=== PATIENT | male | born 1945 | race Caucasian/White ===

== ENCOUNTER → 2020-11-09 | Outpatient (CLI) | payer MEDICARE ==
[~2020-11-09] MED LIST: ACTEMRA IV; AMITRIPTYLINE H75 MG PO; AMLODIPINE BESY10 MG PO; AMLODIPINE BESYL5 MG PO; ARICEPT5 MG PO; ASPIRIN EC81 MG PO; AZULFIDINE500 MG PO; BETAPACE80 MG PO; CATAPRES 0.1MG0.1 MG PO; CELEBREX200 MG PO; CIPRO500 MG PO; CYMBALTA30 MG PO; DILTIAZEM ER240 M1 PO; ELIQUIS5 MG PO; ENDOCET 10-3251 EACH PO; FERROUS SULFAT325 MG PO; FINASTERIDE5 MG PO; FLAGYL500 MG PO; FLOMAX 0.4 MG0.4 MG PO; FOLIC ACID 1 MG1 MG PO; HYDROCHLOROTHIA25 MG PO; HYDROCODON-ACE1 EAC4 PO; ISOSORBIDE MONO60 MG PO; LEVAQUIN500 MG PO; LISINOPRIL10 MG PO; LOVASTATIN10 MG PO; MELOXICAM15 MG PO; METHOTREXATE T2.5 MG PO; MULTAQ 400 MG400 MG PO; NEURONTIN 300300 MG PO; NITROSTAT0.4 MG SL; NORVASC 5 MG TAB5 MG PO; PLAQUENIL 200200 MG PO; PREDNISONE 10 M10 MG PO; PROTONIX40 MG PO; REMICADE I100 MG/VIA INJ; SULFASALAZINE500 MG PO; TOPROL XL25 MG PO; TYLENOL 500 MG500 MG PO; TYLENOL W/CODEIN1 E1 PO; VALACYCLOVIR500 MG PO; VIGAMOX3 ML OP; VITAMIN D3125 MCG PO
== END ==
LOC: HEART 5 10-05 08:45 → EXRD 07:36 → HEART 5 08:30
DX: I20.8 Other forms of angina pectoris (principal); R09.89 Other specified symptoms and signs involving the circulatory and respiratory systems
CPT/HCPCS: 78452; 93880; A9502; J2785

== ENCOUNTER → 2020-11-17 | Outpatient (CLI) | payer MEDICARE | LOC: CT 14:43 | DX: I65.29 Occlusion and stenosis of unspecified carotid artery (principal); N18.9 Chronic kidney disease, unspecified | CPT/HCPCS: 36415; 82565; 84520 ==

== ENCOUNTER → 2020-12-02 | Outpatient (CLI) | payer MEDICARE | LOC: CT 15:04 | DX: I65.23 Occlusion and stenosis of bilateral carotid arteries (principal); M47.812 Spondylosis without myelopathy or radiculopathy, cervical region; M48.02 Spinal stenosis, cervical region | CPT/HCPCS: 70498; Q9967 ==

== ENCOUNTER 2021-01-25 11:04 | Inpatient (IN) | payer MEDICARE ==
[~2021-01-25] VITALS: Ht 185.4 cm; Wt 90.7 kg
[~2021-01-25 11:04] MED LIST changes: -ARICEPT5 MG PO; -CATAPRES 0.1MG0.1 MG PO; -CIPRO500 MG PO; -FLAGYL500 MG PO; -PLAQUENIL 200200 MG PO; -SULFASALAZINE500 MG PO; -VALACYCLOVIR500 MG PO; -VIGAMOX3 ML OP; -VITAMIN D3125 MCG PO
[2021-01-25] MEDS ORDERED: PLAQUENIL 200200 MG PO (11:57)
[2021-01-25] MEDS ORDERED: VITAMIN D3125 MCG PO (12:03)
[2021-01-25 12:06] LABS: HEMOGLOBIN 10.3 gm/dl (14.0-17.5); RED BLOOD COUNT 3.19 M/UL (4.20-5.50); WHITE BLOOD COUNT 13.1 K/UL (4.5-11.0)
[2021-01-25] MEDS ORDERED: FOLIC ACID 1 MG1 MG PO (17:55)
[2021-01-25] MEDS ORDERED: ARICEPT5 MG PO (17:55)
[2021-01-25] MEDS ORDERED: SULFASALAZINE500 MG PO (17:56)
[2021-01-25] MEDS ORDERED: VALACYCLOVIR500 MG PO (17:57)
[2021-01-25] MEDS ORDERED: VIGAMOX3 ML OP (20:33)
[2021-01-25] MEDS ORDERED: CATAPRES 0.1MG0.1 MG PO (22:40)
[2021-01-26 04:59] LABS: HEMOGLOBIN 8.8 gm/dl (14.0-17.5)
[2021-01-26 05:07] LABS: RED BLOOD COUNT 2.72 M/UL (4.20-5.50); WHITE BLOOD COUNT 6.9 K/UL (4.5-11.0)
[2021-01-27 03:10] LABS: RED BLOOD COUNT 2.71 M/UL (4.20-5.50); WHITE BLOOD COUNT 7.8 K/UL (4.5-11.0)
[2021-01-29] MEDS ORDERED: CIPRO500 MG PO (08:37)
[2021-01-29] MEDS ORDERED: FLAGYL500 MG PO (08:37)
== END 2021-01-29 12:45 | disposition home or self-care (01) | DRG 871 ==
LOC: ER1 11:04 → CDU 16:48 → CCU 16:48 → PROG CARE 01-26 22:17 → MED SURG 4 01-28 14:56
PROVIDERS: Emergency Medicine; Internal Medicine; ADMIT Internal Medicine
PROC: 3E033XZ Introduction of Vasopressor into Peripheral Vein, Percutaneous Approach (ICD-10-PCS; principal; 2021-01-25)
DX: A41.9 Sepsis, unspecified organism (principal); R65.21 Severe sepsis with septic shock; N39.0 Urinary tract infection, site not specified; D84.9 Immunodeficiency, unspecified; N17.9 Acute kidney failure, unspecified; I45.2 Bifascicular block; A09 Infectious gastroenteritis and colitis, unspecified; Z20.822 Contact with and (suspected) exposure to COVID-19; E86.1 Hypovolemia; F32.9 Major depressive disorder, single episode, unspecified; E78.00 Pure hypercholesterolemia, unspecified; G89.29 Other chronic pain; I73.9 Peripheral vascular disease, unspecified; N20.0 Calculus of kidney; M06.9 Rheumatoid arthritis, unspecified; N18.30 Chronic kidney disease, stage 3 unspecified; N40.0 Benign prostatic hyperplasia without lower urinary tract symptoms; I48.0 Paroxysmal atrial fibrillation; H54.62 Unqualified visual loss, left eye, normal vision right eye; I12.9 Hypertensive chronic kidney disease with stage 1 through stage 4 chronic kidney disease, or unspecified chronic kidney disease; Z79.01 Long term (current) use of anticoagulants; Z95.0 Presence of cardiac pacemaker; Z99.3 Dependence on wheelchair; Z98.62 Peripheral vascular angioplasty status; Z87.891 Personal history of nicotine dependence; Z88.6 Allergy status to analgesic agent; Z82.49 Family history of ischemic heart disease and other diseases of the circulatory system; Z82.3 Family history of stroke; Z98.890 Other specified postprocedural states; Z91.041 Radiographic dye allergy status
CPT/HCPCS: 36415; 71045; 71250; 80048; 80053; 81001; 82550; 82553; 82962; 83605; 83735; 83874; 84484; 85025; 85027; 85610; 86850; 86900; 86901; 87040; 87086; 93005; 96365; 99285; J1200; J2543; J7030; Q9965; U0002

== ENCOUNTER → 2021-07-06 | Outpatient (CLI) | payer MEDICARE ==
[~2021-07-06] MED LIST changes: +ARICEPT5 MG PO; +AZULFIDINE 500500 MG PO; +CATAPRES 0.1MG0.1 MG PO; +CIPRO500 MG PO; +DONEPEZIL HCL5 MG PO; +FLAGYL500 MG PO; +PLAQUENIL 200200 MG PO; +SULFASALAZINE500 MG PO; +VALACYCLOVIR500 MG PO; +VIGAMOX3 ML OP; +VITAMIN D3125 MCG PO
[2021-07-06 09:18] LABS: HEMOGLOBIN 12.6 gm/dl (14.0-17.5); RED BLOOD COUNT 3.88 M/UL (4.20-5.50); WHITE BLOOD COUNT 8.2 K/UL (4.5-11.0)
== END ==
LOC: CATH 08:42
PROVIDERS: Internal Medicine Cardiovascular Disease
DX: I48.19 Other persistent atrial fibrillation (principal); Z79.01 Long term (current) use of anticoagulants; I45.2 Bifascicular block; I49.5 Sick sinus syndrome; I25.2 Old myocardial infarction; I10 Essential (primary) hypertension; Z87.891 Personal history of nicotine dependence; Z88.5 Allergy status to narcotic agent; Z88.8 Allergy status to other drugs, medicaments and biological substances; Z20.822 Contact with and (suspected) exposure to COVID-19; Z95.0 Presence of cardiac pacemaker
CPT/HCPCS: 36415; 80048; 85027; 92960; 93005; J1200; J1742; J2250; J2310; J3010

== ENCOUNTER 2021-08-04 17:10 | Inpatient (IN) | payer MEDICARE ==
[~2021-08-04] VITALS: Ht 182.9 cm; Wt 86.2 kg
[2021-08-04 18:51] LABS: HEMOGLOBIN 12.3 gm/dl (14.0-17.5); RED BLOOD COUNT 3.81 M/UL (4.20-5.50)
[2021-08-04 20:22] LABS: BORDETELLA PARAPERTUSSIS Not Detected (Not Detectd); BORDETELLA PERTUSSIS Not Detected (Not Detectd); CHLAMYDIA PNEUMONIAE Not Detected (Not Detectd); CORONAVIRUS HKU1 Not Detected (Not Detectd); CORONAVIRUS NL63 Not Detected (Not Detectd); CORONAVIRUS OC43 Not Detected (Not Detectd); CORONOAVIRUS 229E Not Detected (Not Detectd); HUMAN METAPNEUMOVIRUS Not Detected (Not Detectd); HUMAN RHINOVIRUS/ENTEROVIRUS Not Detected (Not Detectd); INFLUENZA A Not Detected (Not Detectd); INFLUENZA B Not Detected (Not Detectd); MYCOPLASMA PNEUMONIAE Not Detected (Not Detectd); PARAINFLUENZA VIRUS 1 Not Detected (Not Detectd); PARAINFLUENZA VIRUS 2 Not Detected (Not Detectd); PARAINFLUENZA VIRUS 3 Not Detected (Not Detectd); PARAINFLUENZA VIRUS 4 Not Detected (Not Detectd); RESPIRATORY SYNCYTIAL VIRUS Not Detected (Not Detectd)
[2021-08-04 21:42] LABS: SARS-CoV-2 NOT DETECTED (Not Detectd)
[2021-08-04] MEDS ORDERED: METHOTREXATE T2.5 MG PO (23:41)
[2021-08-04] MEDS ORDERED: PERCOCET 10-321 EACH PO (23:48)
[2021-08-04] MEDS ORDERED: ASPIRIN81 MG PO (23:49)
[2021-08-05 05:45] LABS: HEMOGLOBIN 11.9 gm/dl (14.0-17.5); RED BLOOD COUNT 3.66 M/UL (4.20-5.50)
[2021-08-05 05:48] LABS: WHITE BLOOD COUNT 9.5 K/UL (4.5-11.0)
== END 2021-08-06 15:20 | disposition home or self-care (01) | DRG 694 ==
LOC: ER1 17:10 → CDU 21:02 → MED SURG 4 21:02
PROVIDERS: Internal Medicine; Physician Assistant; Preventive Medicine Occupational Medicine; ADMIT Internal Medicine
DX: N20.0 Calculus of kidney (principal); G93.49 Other encephalopathy; E87.1 Hypo-osmolality and hyponatremia; N17.9 Acute kidney failure, unspecified; Z20.822 Contact with and (suspected) exposure to COVID-19; D50.9 Iron deficiency anemia, unspecified; E55.9 Vitamin D deficiency, unspecified; N40.0 Benign prostatic hyperplasia without lower urinary tract symptoms; E78.5 Hyperlipidemia, unspecified; M06.9 Rheumatoid arthritis, unspecified; I12.9 Hypertensive chronic kidney disease with stage 1 through stage 4 chronic kidney disease, or unspecified chronic kidney disease; E86.0 Dehydration; F41.9 Anxiety disorder, unspecified; F32.A Depression, unspecified; F17.210 Nicotine dependence, cigarettes, uncomplicated; N18.30 Chronic kidney disease, stage 3 unspecified; I48.0 Paroxysmal atrial fibrillation; Z87.442 Personal history of urinary calculi; Z79.01 Long term (current) use of anticoagulants; Z79.82 Long term (current) use of aspirin; Z79.899 Other long term (current) drug therapy; Z87.440 Personal history of urinary (tract) infections; Z95.0 Presence of cardiac pacemaker; Z88.8 Allergy status to other drugs, medicaments and biological substances; Z88.6 Allergy status to analgesic agent
CPT/HCPCS: 36415; 36600; 70450; 71045; 80048; 80053; 80307; 81001; 82140; 82550; 82553; 82803; 83605; 83690; 83874; 83930; 84132; 84300; 84484; 85025; 86140; 87040; 87077; 87086; 87186; 87633; 93005; 96374; 97161; 99285; G0480; J0696; J1650; J7030